=== PATIENT | female | born 1985 | race Caucasian/White ===

== ENCOUNTER → 2021-03-12 | Outpatient (CLI) | payer OTHER ==
[~2021-03-12] MED LIST: CONTRAST GIVEN. MC PRN; IOHEXOL 300 MG/ML 50 ML VIAL. IJ ONE
--- NOTE | 2021-03-12 16:22 | RAD ---
DG HYSTEROSALPINGOGRAM W/FLUORO History: Reason: ENDOMETRIOSIS, TRYING TO GET / Spl. Instructions: CONTRAST ORDERED / Histor y: COMPARISON: None TECHNIQUE: Patient was informed of the risks to include pain, infection, and bleeding. All questions were answered. Patient signed a written consent form for hysterosalpingogram. Patient was placed in a supine position on the fluoroscopy table. Speculum was inserted and cervix was cleansed with Betadin e solution. HSG catheter was inserted and secured with balloon inflation. Contrast was injected durin g fluoroscopic visualization, 15 cc of Omnipaque contrast. The balloon was deflated and catheter lakisha naseem. Speculum was removed. There were no immediate complications. FINDINGS: Contrast medium opacified the uterine cavity. Minimal contrast initially progressed into th e proximal aspects of the fallopian tubes. Additional contrast was instilled with spill into the cerv ical canal. Repositioning of the balloon was performed. Minimal contrast extended into the fallopian tubes bilaterally more prominent on the left than the right. After persistent contrast injection with increased pressure the fallopian tubes demonstrate opacification with mild peritoneal spill bilatera lly, left greater than right. Fluoroscopy time: less than 5 minutes Fluoroscopic images: 17 IMPRESSION: 1. Delayed filling of the fallopian tubes with mild opacification and mild peritoneal spill, left gr eater than right. Findings may relate to adhesions or stenosis within the fallopian tubes. Electronically signed by: Jun Quigley DO (03/12/2021 4:20 PM) [id number]
== END | disposition home or self-care (01) ==
LOC: RAD 13:48
DX: N80.9 Endometriosis, unspecified (principal)
CPT/HCPCS: 58340; 74740; Q9967